=== PATIENT | female | born 1940 | race Caucasian/White ===

== ENCOUNTER 2019-08-22 21:44 | Emergency (ER) | payer OTHER, MEDICAID ==
[~2019-08-22] VITALS: Ht 157.5 cm; Wt 59.0 kg
[2019-08-22 21:53] VITALS: BP_SYST 188
--- NOTE | 2019-08-22 22:00 | NUR ---
Pt here for medical clearance r/t increased aggressive behavior towards staff. Pt moaning out "Don't kill me." Pt reassured, but aggitative behavior by thrashing about in bed.
--- NOTE | 2019-08-22 22:00 | NUR ---
Patient to ER bed 07 for evaluation. Side rails up.
[2019-08-22] MEDS ORDERED: DIPHENHYDRAMINE INJ 50 MG/ML VIAL IM ONE (22:15)
[2019-08-22] MEDS ORDERED: LORazepam 2 MG/ML VIAL IM ONE (22:15)
[2019-08-22 22:24] LABS: BASOPHILS # (AUTO) 0.1 K/uL (0.0-0.2); BASOPHILS % (AUTO) 0.8 % (0.0-2.0); EOSINOPHILS # (AUTO) 0.1 K/uL (0.0-0.4); HEMATOCRIT 37.9 % (36-48); LYMPHOCYTES # (AUTO) 2.8 K/uL (1.0-5.5); LYMPHOCYTES % (AUTO) 31.8 % (20.5-51.5); MEAN CORPUSCULAR HEMOGLOBIN 33 pg (27-31); MEAN CORPUSCULAR HGB CONC 34 % (32-36); MEAN CORPUSCULAR VOLUME 97 fL (79.0-98.0); MONOCYTES # (AUTO) 0.7 K/uL (0.0-1.0); MONOCYTES % (AUTO) 8.1 % (1.7-9.3); NEUTROPHILS # (AUTO) 5.1 K/uL (1.8-7.7); NEUTROPHILS % (AUTO) 58.3 % (40.0-70.0); PLATELET COUNT (AUTO) 327 K/uL (130-430); RED BLOOD CELL COUNT(AUTO) 3.91 MIL/uL (4.2-6.2); RED CELL DISTRIBUTION WIDTH 13.9 % (9.0-15.0); WHITE BLOOD COUNT (AUTO) 8.8 K/uL (4.8-10.8)
--- NOTE | 2019-08-22 22:25 | NUR ---
Pt combative and yelling out. Dr. Bennett notified. Pt to be medicated prior to In/Out [place] cath attempt.
[2019-08-22 22:38] LABS: ANION GAP 4 (5-15); CALCIUM 8.5 mg/dL (8.4-11.0); CHLORIDE 106 mmol/L (98-107); CREATININE 0.85 mg/dL (0.55-1.30); GLUCOSE 116 mg/dL (70-99); POTASSIUM 3.9 mmol/L (3.5-5.1); SODIUM SERUM 135 mmol/L (136-145); UREA NITROGEN, BLOOD 27 mg/dL (8-21)
--- NOTE | 2019-08-22 22:40 | NUR ---
Dr. Bennett at bedside.
[2019-08-22 22:44] LABS: ALANINE AMINOTRANSFERASE 22 U/L (12-78); ALBUMIN 3.6 g/dL (3.4-4.8); ASPARTATE AMINOTRANSFERASE 15 U/L (10-37); CHOLESTEROL 201 mg/dL (<200); HDL CHOLESTEROL 71 mg/dL (>55); LDL CHOLESTEROL 114 mg/dL (<100); TOTAL BILIRUBIN 0.4 mg/dL (0.0-1.0); TRIGLYCERIDES 87 mg/dL (30-150)
--- NOTE | 2019-08-22 22:46 | NUR ---
#14 Fr. In/Out cath performed, ~ 150 mL cloudy yellow urine to bag. Specimen collected and sent to lab. Pt tolerated procedure fair.
[2019-08-22 22:49] LABS: ACETAMINOPHEN < 1 ug/mL (1-30); ALCOHOL, BLOOD < 3 mg/dL (<10)
[2019-08-22 22:54] LABS: BILIRUBIN,URINE NEGATIVE (NEGATIVE); CLARITY/URINE CLEAR (CLEAR); COLOR,URINE YELLOW (YELLOW); GLUCOSE,URINE NEGATIVE (NEGATIVE); KETONES,URINE NEGATIVE (NEGATIVE); LEUKOCYTE ESTERASE ,URINE NEGATIVE (NEGATIVE); NITRITE, URINE POSITIVE (NEGATIVE); PH,URINE 5.5 (5.0-8.0); PROTEIN URINE NEGATIVE (NEGATIVE); UROBILINOGEN,URINE 0.2 (0.2-1.0)
[2019-08-22 22:56] LABS: BLOOD, URINE TRACE (NEGATIVE)
[2019-08-22 23:00] LABS: BACTERIA,URINE MANY /HPF (None Seen)
--- NOTE | 2019-08-22 23:00 | NUR ---
Pt resting calmly with even and non-labored respirations. NAD.
[2019-08-22 23:21] LABS: BARBITURATE, URINE NEGATIVE (NEG <=200); BENZODIAZEPINE, URINE NEGATIVE (NEG <=150); CANNABINOID, URINE NEGATIVE (NEG <=50); COCAINE, URINE NEGATIVE (NEG <=150); METHAMPHETAMINES SCREEN,URINE NEGATIVE (NEG <=500); OPIATE, URINE NEGATIVE (NEG <=100); PHENCYCLIDINE SCREEN,URINE NEGATIVE (NEG <=25); UR TRICYCLIC ANTIDEPRESSANTS NEGATIVE (NEG <=300); URINE AMPHETAMINE NEGATIVE (NEG <=500); URINE METHADONE NEGATIVE (NEG <=200); URINE OXYCODONE SCREEN NEGATIVE (NEG <=100); URINE PROPOXYPHENE SCREEN NEGATIVE (NEG <=300)
[2019-08-22] MEDS ORDERED: CALC-827 PO (23:25)
[2019-08-22] MEDS ORDERED: CRAN450C PO (23:25)
[2019-08-22] MEDS ORDERED: MEMA10TA PO (23:26)
[2019-08-22] MEDS ORDERED: DOCU-144 PO (23:26)
[2019-08-22] MEDS ORDERED: MULT-1100 PO (23:27)
[2019-08-22] MEDS ORDERED: GLU500 PO (23:27)
[2019-08-22] MEDS ORDERED: ACET-2165 PO (23:28)
[2019-08-22] MEDS ORDERED: cefTRIAXone 1 GM VIAL IM ONE (23:30)
--- NOTE | 2019-08-22 23:30 | NUR ---
B/P 120/53. Dr. Bennett notified. Order for Catapress 0.2 mg PO discontinued and not administered. Pt resting calmly with even and non-labored respirations. NAD.
--- NOTE | 2019-08-22 23:30 | NUR ---
Medication reconciliation completed with information provided by [facility]. Any prior medication reconciliation on file was reviewed and corrected.
[2019-08-23] MEDS: cloNIDine HCL 0.1 MG TABLET PO ONE ×2 (00:01→00:02)
[2019-08-23 00:40] VITALS: BP_SYST 125
--- NOTE | 2019-08-23 00:40 | NUR ---
Patient to be transferred to [facility] Rm 53B. Is being transferred due to higher level of care. Receiving facility has accepting physician and available space. ER physician has signed transfer form. Patient or responsible constitution party has agreed to transfer and signed form. Patient belongings inventoried and will be sent with patient. Copy of nursing notes, lab reports, EKG, Physicians Orders and X-rays to be sent with patient. Report called to SHANTELL Patino at receiving facility. Receiving physician is Dr. Fofana and Dr. Yañez. [facility] ambulance service has been called for transfer.
== END 2019-08-23 00:40 ==
LOC: SED 21:44
DX: R45.1 Restlessness and agitation (principal); F29 Unspecified psychosis not due to a substance or known physiological condition; N39.0 Urinary tract infection, site not specified; E11.9 Type 2 diabetes mellitus without complications; F32.9 Major depressive disorder, single episode, unspecified; Z79.84 Long term (current) use of oral hypoglycemic drugs
CPT/HCPCS: 36415; 80053; 80061; 80307; 81000; 83036; 85025; 87081; 87086; 87186; 96372; 99285; G0480; G0481; G0482; J0696; J1200; J2060

== ENCOUNTER 2019-08-28 16:27 | Outpatient (CLI) | payer OTHER ==
[~2019-08-28 16:27] MED LIST: ACET-2165 PO; CALC-827 PO; CRAN450C PO; DOCU-144 PO; GLU500 PO; MEMA10TA PO; MULT-1100 PO
== END 2019-08-28 20:34 | disposition home or self-care (01) ==
LOC: SLB 16:27
PROVIDERS: ATTEND Psychiatry & Neurology Psychiatry
DX: Z00.00 Encounter for general adult medical examination without abnormal findings (principal)
CPT/HCPCS: 36415; 80164-TC

== ENCOUNTER 2019-08-29 15:18 | Outpatient (CLI) | payer OTHER | END 2019-08-29 18:05 | disposition home or self-care (01) | LOC: SLB 15:18 | PROVIDERS: ATTEND Psychiatry & Neurology Psychiatry | DX: Z00.00 Encounter for general adult medical examination without abnormal findings (principal) | CPT/HCPCS: 36415; 80164-TC ==

== ENCOUNTER 2019-09-02 12:57 | Outpatient (CLI) | payer OTHER | END 2019-09-02 21:06 | disposition home or self-care (01) | LOC: SLB 12:57 | PROVIDERS: ATTEND Psychiatry & Neurology Psychiatry | DX: Z00.00 Encounter for general adult medical examination without abnormal findings (principal) | CPT/HCPCS: 36415; 80164-TC ==

== ENCOUNTER 2020-01-09 17:01 | Inpatient (IN) | payer OTHER, MEDICAID ==
[~2020-01-09] VITALS: Ht 157.5 cm; Wt 44.0 kg
[~2020-01-09 17:01] MED LIST changes: +BUPIVACAINE /DEX PF 0.75% SPINAL 2 ML AMP INJ ONE; +LR 1,000 ML IV.SOLN IV ONE; +MIDAZOLAM HCL 5 MG/5 ML VIAL IVP ONE; +MORPHINE SULFATE 10MG/10ML PF AMP EP ONE; +PROPOFOL 200MG/ 20ML VIAL (DIPRIVAN) IV ONE
[2020-01-09 17:07] VITALS: BP_SYST 111
[2020-01-09] MEDS ORDERED: NACL 0.9% 1,000 ML IV ONE (17:11)
[2020-01-09] MEDS ORDERED: ONDANSETRON HCL 4 MG/2 ML VIAL IVP ONE (17:15)
[2020-01-09] MEDS ORDERED: MORPHINE 4 MG/ML INJ. SYRINGE IVP ONE (17:15)
[2020-01-09] MEDS ORDERED: DONE5TAB26 PO (18:16)
[2020-01-09] MEDS ORDERED: OLAN2.5T29 PO (18:16)
[2020-01-09] MEDS ORDERED: DEPAKENE PO (18:16)
[2020-01-09 20:48] LABS: BASOPHILS # (AUTO) 0.1 K/uL (0.0-0.2); BASOPHILS % (AUTO) 0.7 % (0.0-2.0); EOSINOPHILS # (AUTO) 0.1 K/uL (0.0-0.4); EOSINOPHILS % (AUTO) 0.6 % (0.0-4.0); HEMATOCRIT 35.9 % (36-48); HEMOGLOBIN 12.1 g/dL (12.0-16.0); LYMPHOCYTES # (AUTO) 2.3 K/uL (1.0-5.5); LYMPHOCYTES % (AUTO) 23.2 % (20.5-51.5); MEAN CORPUSCULAR HEMOGLOBIN 33 pg (27-31); MEAN CORPUSCULAR HGB CONC 34 % (32-36); MEAN CORPUSCULAR VOLUME 98 fL (79.0-98.0); MONOCYTES # (AUTO) 0.9 K/uL (0.0-1.0); MONOCYTES % (AUTO) 8.8 % (1.7-9.3); NEUTROPHILS # (AUTO) 6.7 K/uL (1.8-7.7); NEUTROPHILS % (AUTO) 66.7 % (40.0-70.0); PLATELET COUNT (AUTO) 303 K/uL (130-430); RED BLOOD CELL COUNT(AUTO) 3.65 MIL/uL (4.2-6.2); WHITE BLOOD COUNT (AUTO) 10.1 K/uL (4.8-10.8)
[2020-01-09 20:52] LABS: CALCIUM 8.7 mg/dL (8.4-11.0); CREATININE 0.83 mg/dL (0.55-1.30); GLUCOSE 115 mg/dL (70-99); UREA NITROGEN, BLOOD 43 mg/dL (8-21)
[2020-01-09 20:56] LABS: ALANINE AMINOTRANSFERASE 20 U/L (12-78); ALBUMIN 2.9 g/dL (3.4-4.8); AMYLASE 31 U/L (0-100); ASPARTATE AMINOTRANSFERASE 17 U/L (10-37); INR 1.1 (0.8-1.2); LIPASE 131 U/L (73-393); PROTHROMBIN TIME 10.7 SECS (9.5-12.5); TOTAL BILIRUBIN 0.5 mg/dL (0.0-1.0)
[2020-01-09 21:04] LABS: ANION GAP 6 (5-15); CHLORIDE 104 mmol/L (98-107); POTASSIUM 3.9 mmol/L (3.5-5.1); SODIUM SERUM 140 mmol/L (136-145)
[2020-01-09 21:18] VITALS: BP_SYST 129
[2020-01-09 22:10] LABS: BLOOD, URINE NEGATIVE (NEGATIVE); CLARITY/URINE CLEAR (CLEAR); GLUCOSE,URINE NEGATIVE (NEGATIVE); KETONES,URINE TRACE (NEGATIVE); LEUKOCYTE ESTERASE ,URINE NEGATIVE (NEGATIVE); NITRITE, URINE NEGATIVE (NEGATIVE); PROTEIN URINE TRACE (NEGATIVE)
[2020-01-09] MEDS: D5/0.45 NS 1,000 ML IV SCH (22:13)
[2020-01-09 22:21] LABS: BILIRUBIN,URINE NEGATIVE (NEGATIVE); COLOR,URINE AMBER (YELLOW)
[2020-01-09 22:22] LABS: BACTERIA,URINE FEW /HPF (None Seen); MUCUS,URINE 2+ /LPF (None Seen); RBC,URINE 0-3 /HPF (0-3); WBC,URINE 0-3 /HPF (0-3)
[2020-01-10] MEDS ORDERED: MORPHINE 2 MG/ML INJ. SYRINGE IVP PRN (00:30)
[2020-01-10 01:05] VITALS: BP_SYST 122
[2020-01-10 01:12] VITALS: BP_SYST 116
[2020-01-10 07:03] LABS: BASOPHILS % (AUTO) 0.2 % (0.0-2.0); EOSINOPHILS % (AUTO) 0.3 % (0.0-4.0); HEMATOCRIT 34.4 % (36-48); HEMOGLOBIN 11.4 g/dL (12.0-16.0); LYMPHOCYTES # (AUTO) 1.2 K/uL (1.0-5.5); LYMPHOCYTES % (AUTO) 11.4 % (20.5-51.5); MEAN CORPUSCULAR HEMOGLOBIN 33 pg (27-31); MEAN CORPUSCULAR HGB CONC 33 % (32-36); MEAN CORPUSCULAR VOLUME 99 fL (79.0-98.0); MONOCYTES # (AUTO) 0.9 K/uL (0.0-1.0); MONOCYTES % (AUTO) 8.9 % (1.7-9.3); NEUTROPHILS # (AUTO) 8.4 K/uL (1.8-7.7); NEUTROPHILS % (AUTO) 79.2 % (40.0-70.0); PLATELET COUNT (AUTO) 281 K/uL (130-430); RED BLOOD CELL COUNT(AUTO) 3.47 MIL/uL (4.2-6.2); RED CELL DISTRIBUTION WIDTH 16.3 % (9.0-15.0); WHITE BLOOD COUNT (AUTO) 10.6 K/uL (4.8-10.8)
[2020-01-10 07:34] LABS: ALANINE AMINOTRANSFERASE 11 U/L (12-78); ALBUMIN 2.4 g/dL (3.4-4.8); ANION GAP 9 (5-15); ASPARTATE AMINOTRANSFERASE 18 U/L (10-37); CALCIUM 8.2 mg/dL (8.4-11.0); CHLORIDE 107 mmol/L (98-107); CREATININE 0.75 mg/dL (0.55-1.30); GLUCOSE 116 mg/dL (70-99); POTASSIUM 3.8 mmol/L (3.5-5.1); SODIUM SERUM 144 mmol/L (136-145); TOTAL BILIRUBIN 0.6 mg/dL (0.0-1.0); UREA NITROGEN, BLOOD 38 mg/dL (8-21)
[2020-01-10 10:30] VITALS: BP_SYST 114
[2020-01-10 13:54] VITALS: BP_SYST 103
[2020-01-10] MEDS ORDERED: ACETAMINOPHEN 325 MG TABLET PO PRN (16:15)
[2020-01-10 17:06] VITALS: BP_SYST 116
[2020-01-10] MEDS: D5/0.45 NS 1,000 ML IV SCH (17:38)
[2020-01-10] MEDS ORDERED: metFORMIN HCL 500 MG TABLET PO SCH (18:00)
[2020-01-10 20:00] VITALS: BP_SYST 140
[2020-01-10] MEDS: MORPHINE 2 MG/ML INJ. SYRINGE IVP PRN (20:24)
[2020-01-10] MEDS: DIVALPROEX SODIUM 500 MG TABLET( DEPAKOTE) PO SCH (21:08)
[2020-01-10] MEDS: OLANZapine 2.5 MG TABLET PO SCH (21:08)
[2020-01-10] MEDS: DOCUSATE SODIUM 100 MG CAPSULE PO SCH (21:09)
[2020-01-10] MEDS: DONEPEZIL HCL 5 MG TABLET (ARICEPT) PO SCH (21:10)
[2020-01-10] MEDS: MEMANTINE HCL 5 MG TABLET PO SCH (21:10)
[2020-01-10] MEDS: LEVOFLOXACIN 250 MG/D5W 50 ML IV SCH (21:22)
[2020-01-10] MEDS ORDERED: LEVOFLOXACIN 250 MG/D5W 50 ML IV ONE (21:32)
[2020-01-10] MEDS: HYDROcodone/ACETAMIN 5-325 MG TAB (NORCO/ VICODIN) PO PRN (23:20)
[2020-01-11 00:52] VITALS: BP_SYST 131
[2020-01-11] MEDS: D5/0.45 NS 1,000 ML IV SCH ×2 (04:43→20:08)
[2020-01-11] MEDS: MORPHINE 2 MG/ML INJ. SYRINGE IVP PRN ×3 (05:05→12:40)
[2020-01-11] MEDS ORDERED: DIGOXIN 0.5 MG/2 ML AMP IVP ONE (06:15)
[2020-01-11 08:48] VITALS: BP_SYST 149
[2020-01-11] MEDS: OLANZapine 2.5 MG TABLET PO SCH ×2 (09:00→22:58)
[2020-01-11] MEDS: DIVALPROEX SODIUM 500 MG TABLET( DEPAKOTE) PO SCH ×2 (09:00→22:58)
[2020-01-11] MEDS: MEMANTINE HCL 5 MG TABLET PO SCH ×2 (09:00→22:59)
[2020-01-11] MEDS: DOCUSATE SODIUM 100 MG CAPSULE PO SCH ×2 (09:00→21:00)
[2020-01-11] MEDS ORDERED: AMIODARONE HCL 200 MG TABLET PO ONE ×2 (09:30→09:45)
[2020-01-11 12:58] VITALS: BP_SYST 144
[2020-01-11] MEDS ORDERED: POLYMYXIN 500,000/BACIT.10,000 UNITS in NS IRR 1 L IR ONE (13:03)
[2020-01-11] MEDS ORDERED: ONDANSETRON HCL 4 MG/2 ML VIAL IVP PRN (14:00)
[2020-01-11] MEDS ORDERED: NALBUPHINE HCL 10 MG/ML AMP IVP PRN (14:00)
[2020-01-11] MEDS ORDERED: KETOROLAC TROMETHAMINE 60 MG/2 ML VIAL IM PRN (14:00)
[2020-01-11] MEDS ORDERED: fentaNYL CITRATE/PF 100 MCG/2 ML AMP IVP PRN ×2 (14:00)
[2020-01-11] MEDS ORDERED: DIPHENHYDRAMINE INJ 50 MG/ML VIAL IVP PRN (14:00)
[2020-01-11] MEDS ORDERED: NALOXONE HCL 0.4 MG/ML AMP (NARCAN) IVP PRN ×2 (14:00)
[2020-01-11] MEDS ORDERED: MORPHINE SULFATE 10MG/10ML PF AMP SP SCH (14:00)
[2020-01-11 20:00] VITALS: BP_SYST 162
[2020-01-11] MEDS: LEVOFLOXACIN 250 MG/D5W 50 ML IV SCH (20:59)
[2020-01-11] MEDS ORDERED: AMIODARONE HCL 200 MG TABLET PO SCH (21:00)
[2020-01-11] MEDS ORDERED: CEFAZOLIN 1 GM IVPB PREMIX 100 ML IV ONE (22:26)
[2020-01-11] MEDS: CEFAZOLIN 1 GM IVPB PREMIX 50 ML IV SCH (22:58)
[2020-01-11] MEDS: DONEPEZIL HCL 5 MG TABLET (ARICEPT) PO SCH (22:59)
[2020-01-11] MEDS: HYDROcodone/ACETAMIN 5-325 MG TAB (NORCO/ VICODIN) PO PRN (22:59)
[2020-01-12 01:23] VITALS: BP_SYST 156
[2020-01-12] MEDS: D5/0.45 NS 1,000 ML IV SCH ×3 (01:44→21:00)
[2020-01-12] MEDS: CEFAZOLIN 1 GM IVPB PREMIX 50 ML IV SCH (05:24)
[2020-01-12 07:35] LABS: BASOPHILS % (AUTO) 0.3 % (0.0-2.0); EOSINOPHILS % (AUTO) 0.4 % (0.0-4.0); HEMATOCRIT 31.9 % (36-48); HEMOGLOBIN 10.9 g/dL (12.0-16.0); LYMPHOCYTES # (AUTO) 1.1 K/uL (1.0-5.5); LYMPHOCYTES % (AUTO) 13.3 % (20.5-51.5); MEAN CORPUSCULAR HEMOGLOBIN 33 pg (27-31); MEAN CORPUSCULAR HGB CONC 34 % (32-36); MEAN CORPUSCULAR VOLUME 97 fL (79.0-98.0); MONOCYTES # (AUTO) 0.8 K/uL (0.0-1.0); MONOCYTES % (AUTO) 10.3 % (1.7-9.3); NEUTROPHILS # (AUTO) 6.2 K/uL (1.8-7.7); NEUTROPHILS % (AUTO) 75.7 % (40.0-70.0); PLATELET COUNT (AUTO) 322 K/uL (130-430); RED BLOOD CELL COUNT(AUTO) 3.28 MIL/uL (4.2-6.2); RED CELL DISTRIBUTION WIDTH 15.2 % (9.0-15.0); WHITE BLOOD COUNT (AUTO) 8.1 K/uL (4.8-10.8)
[2020-01-12 07:51] LABS: ANION GAP 7 (5-15); CALCIUM 7.9 mg/dL (8.4-11.0); CHLORIDE 101 mmol/L (98-107); CREATININE 0.61 mg/dL (0.55-1.30); GLUCOSE 159 mg/dL (70-99); POTASSIUM 3.3 mmol/L (3.5-5.1); SODIUM SERUM 137 mmol/L (136-145); UREA NITROGEN, BLOOD 10 mg/dL (8-21)
[2020-01-12 08:04] VITALS: BP_SYST 143
[2020-01-12 08:15] LABS: VALPROIC ACID 21 ug/mL (50-100)
[2020-01-12] MEDS: ENOXAPARIN SODIUM 30 MG/0.3 ML SYRINGE SUBCUT SCH (09:48)
[2020-01-12] MEDS: OLANZapine 2.5 MG TABLET PO SCH ×2 (09:49→21:00)
[2020-01-12] MEDS: MEMANTINE HCL 5 MG TABLET PO SCH ×2 (09:49→21:00)
[2020-01-12] MEDS: DIVALPROEX SODIUM 500 MG TABLET( DEPAKOTE) PO SCH ×2 (09:49→21:00)
[2020-01-12] MEDS: DOCUSATE SODIUM 100 MG CAPSULE PO SCH ×2 (09:49→21:00)
[2020-01-12 12:39] VITALS: BP_SYST 136
[2020-01-12] MEDS: HYDROcodone/ACETAMIN 5-325 MG TAB (NORCO/ VICODIN) PO PRN (13:28)
[2020-01-12] MEDS: MORPHINE 2 MG/ML INJ. SYRINGE IVP PRN ×2 (15:35→21:17)
[2020-01-12 16:42] VITALS: BP_SYST 131
[2020-01-12] MEDS: LORazepam 2 MG/ML VIAL IVP PRN (16:55)
[2020-01-12 20:00] VITALS: BP_SYST 149
[2020-01-12] MEDS: LEVOFLOXACIN 250 MG/D5W 50 ML IV SCH (20:59)
[2020-01-12] MEDS: DONEPEZIL HCL 5 MG TABLET (ARICEPT) PO SCH (21:00)
[2020-01-13 00:54] VITALS: BP_SYST 158
[2020-01-13] MEDS: MORPHINE 2 MG/ML INJ. SYRINGE IVP PRN ×3 (04:05→23:32)
[2020-01-13] MEDS: D5/0.45 NS 1,000 ML IV SCH ×2 (06:05→15:47)
[2020-01-13 08:00] VITALS: BP_SYST 145
[2020-01-13] MEDS: OLANZapine 2.5 MG TABLET PO SCH ×2 (08:46→20:53)
[2020-01-13] MEDS: DIVALPROEX SODIUM 500 MG TABLET( DEPAKOTE) PO SCH ×2 (08:46→20:53)
[2020-01-13] MEDS: MEMANTINE HCL 5 MG TABLET PO SCH ×2 (08:46→20:53)
[2020-01-13] MEDS: DOCUSATE SODIUM 100 MG CAPSULE PO SCH ×2 (08:46→20:53)
[2020-01-13] MEDS: ENOXAPARIN SODIUM 30 MG/0.3 ML SYRINGE SUBCUT SCH (08:47)
[2020-01-13 11:46] VITALS: BP_SYST 105
[2020-01-13] MEDS ORDERED: AMIODARONE HCL 200 MG TABLET PO ONE ×2 (16:15→18:00)
[2020-01-13 16:30] VITALS: BP_SYST 144
[2020-01-13 20:00] VITALS: BP_SYST 104
[2020-01-13] MEDS: LEVOFLOXACIN 250 MG/D5W 50 ML IV SCH (20:50)
[2020-01-13] MEDS: DONEPEZIL HCL 5 MG TABLET (ARICEPT) PO SCH (20:53)
[2020-01-14 01:42] VITALS: BP_SYST 123
[2020-01-14] MEDS: D5/0.45 NS 1,000 ML IV SCH ×2 (03:49→13:13)
[2020-01-14] MEDS: MORPHINE 2 MG/ML INJ. SYRINGE IVP PRN ×2 (03:49→13:39)
[2020-01-14 08:09] VITALS: BP_SYST 123
[2020-01-14] MEDS: AMIODARONE HCL 200 MG TABLET PO SCH ×3 (09:00→20:47)
[2020-01-14] MEDS: DOCUSATE SODIUM 100 MG CAPSULE PO SCH ×2 (09:44→20:45)
[2020-01-14] MEDS: DIVALPROEX SODIUM 500 MG TABLET( DEPAKOTE) PO SCH ×2 (09:44→20:46)
[2020-01-14] MEDS: MEMANTINE HCL 5 MG TABLET PO SCH ×2 (09:44→20:46)
[2020-01-14] MEDS: OLANZapine 2.5 MG TABLET PO SCH (09:44)
[2020-01-14] MEDS: ENOXAPARIN SODIUM 30 MG/0.3 ML SYRINGE SUBCUT SCH (09:45)
[2020-01-14] MEDS: LORazepam 2 MG/ML VIAL IVP PRN (09:48)
[2020-01-14 12:25] VITALS: BP_SYST 149
[2020-01-14 16:20] VITALS: BP_SYST 121
[2020-01-14 16:35] VITALS: BP_SYST 129
[2020-01-14 20:00] VITALS: BP_SYST 163
[2020-01-14] MEDS: DONEPEZIL HCL 5 MG TABLET (ARICEPT) PO SCH (20:46)
[2020-01-14] MEDS: OLANZapine 5 MG TABLET PO SCH (20:46)
[2020-01-14] MEDS: LEVOFLOXACIN 250 MG/D5W 50 ML IV SCH (20:48)
[2020-01-15] MEDS: D5/0.45 NS 1,000 ML IV SCH ×3 (00:24→10:30)
[2020-01-15 00:45] VITALS: BP_SYST 163
[2020-01-15 05:51] LABS: ALANINE AMINOTRANSFERASE 22 U/L (12-78); ALBUMIN 2.3 g/dL (3.4-4.8); ANION GAP 5 (5-15); ASPARTATE AMINOTRANSFERASE 22 U/L (10-37); CALCIUM 8.3 mg/dL (8.4-11.0); CHLORIDE 102 mmol/L (98-107); CREATININE 0.57 mg/dL (0.55-1.30); GLUCOSE 169 mg/dL (70-99); POTASSIUM 3.2 mmol/L (3.5-5.1); SODIUM SERUM 138 mmol/L (136-145); TOTAL BILIRUBIN 0.4 mg/dL (0.0-1.0); UREA NITROGEN, BLOOD 9 mg/dL (8-21)
[2020-01-15 07:02] LABS: BASOPHILS % (AUTO) 0.3 % (0.0-2.0); EOSINOPHILS % (AUTO) 0.3 % (0.0-4.0); HEMATOCRIT 33.7 % (36-48); HEMOGLOBIN 11.5 g/dL (12.0-16.0); LYMPHOCYTES # (AUTO) 1.9 K/uL (1.0-5.5); LYMPHOCYTES % (AUTO) 18.5 % (20.5-51.5); MEAN CORPUSCULAR HEMOGLOBIN 33 pg (27-31); MEAN CORPUSCULAR HGB CONC 34 % (32-36); MEAN CORPUSCULAR VOLUME 98 fL (79.0-98.0); MONOCYTES # (AUTO) 0.7 K/uL (0.0-1.0); MONOCYTES % (AUTO) 6.8 % (1.7-9.3); NEUTROPHILS # (AUTO) 7.4 K/uL (1.8-7.7); NEUTROPHILS % (AUTO) 74.1 % (40.0-70.0); PLATELET COUNT (AUTO) 444 K/uL (130-430); RED BLOOD CELL COUNT(AUTO) 3.45 MIL/uL (4.2-6.2); RED CELL DISTRIBUTION WIDTH 15.8 % (9.0-15.0)
[2020-01-15 07:59] VITALS: BP_SYST 138
[2020-01-15] MEDS: OLANZapine 2.5 MG TABLET PO SCH (08:12)
[2020-01-15] MEDS: MEMANTINE HCL 5 MG TABLET PO SCH ×2 (08:12→20:09)
[2020-01-15] MEDS: AMIODARONE HCL 200 MG TABLET PO SCH ×2 (08:13→20:06)
[2020-01-15] MEDS: DOCUSATE SODIUM 100 MG CAPSULE PO SCH (08:13)
[2020-01-15] MEDS: DIVALPROEX SODIUM 500 MG TABLET( DEPAKOTE) PO SCH ×2 (08:13→20:05)
[2020-01-15] MEDS: ENOXAPARIN SODIUM 30 MG/0.3 ML SYRINGE SUBCUT SCH (08:15)
[2020-01-15] MEDS ORDERED: POTASSIUM CHLORIDE 20 MEQ TAB.PRT.SR PO ONE (10:15)
[2020-01-15 12:10] VITALS: BP_SYST 135
[2020-01-15 16:12] VITALS: BP_SYST 139
[2020-01-15] MEDS: DONEPEZIL HCL 5 MG TABLET (ARICEPT) PO SCH (20:05)
[2020-01-15] MEDS: OLANZapine 5 MG TABLET PO SCH (20:09)
[2020-01-15 20:49] VITALS: BP_SYST 125
[2020-01-15] MEDS ORDERED: LEVOFLOXACIN 250 MG TABLET PO SCH (21:00)
== END 2020-01-15 20:38 | DRG 480 ==
LOC: SED 17:01 → STU 19:52
PROVIDERS: ADMIT Internal Medicine Infectious Disease; ATTEND Internal Medicine Infectious Disease
PROC: 0QS604Z Reposition Right Upper Femur with Internal Fixation Device, Open Approach (ICD-10-PCS; principal; 2020-01-11 15:00)
DX: S72.141A Displaced intertrochanteric fracture of right femur, initial encounter for closed fracture (principal); J18.9 Pneumonia, unspecified organism; J44.0 Chronic obstructive pulmonary disease with (acute) lower respiratory infection; E11.9 Type 2 diabetes mellitus without complications; F20.9 Schizophrenia, unspecified; F02.80 Dementia in other diseases classified elsewhere, unspecified severity, without behavioral disturbance, psychotic disturbance, mood disturbance, and anxiety; F31.9 Bipolar disorder, unspecified; G30.9 Alzheimer's disease, unspecified; I10 Essential (primary) hypertension; R09.02 Hypoxemia; W18.39XA Other fall on same level, initial encounter; M19.90 Unspecified osteoarthritis, unspecified site; Z96.642 Presence of left artificial hip joint; M81.0 Age-related osteoporosis without current pathological fracture; I48.0 Paroxysmal atrial fibrillation; Z78.1 Physical restraint status; Z87.891 Personal history of nicotine dependence; Y93.89 Activity, other specified; Y92.89 Other specified places as the place of occurrence of the external cause; Y99.8 Other external cause status; Z79.899 Other long term (current) drug therapy
CPT/HCPCS: 36415; 71045; 72192-TC; 76000; 80048; 80053; 80164-TC; 81000-TC; 82150-TC; 82550-TC; 82962; 83605; 83690-TC; 84484; 85025; 85610-TC; 85730-TC; 86710; 86886; 86900; 86901; 87040-TC; 87081; 87086; 93005; 96361; 96374; 96375; 97110-GP; 97530-GP; 99285; C1713; G0378; J0690; J1160; J1650; J1956; J2060; J2250; J2270; J2274; J2405; J2704; J3490; J7120